=== PATIENT | male | born 1945 | race Caucasian/White ===

== ENCOUNTER 2017-11-19 08:42 | Emergency (ER) | payer OTHER ==
[2017-11-19] MEDS ORDERED: CLINDAMYCIN HCL 150 MG CAP ONE ×2 (09:08→09:09)
[2017-11-19] MEDS ORDERED: levoFLOXacin 500 MG TAB ONE (09:08)
--- NOTE | 2017-11-19 09:09 | ER ---
Nurse's Notes [facility] Name: Elton Sanches Age: 72 yrs Sex: Male : 1945 Arrival Date: 11/19/2017 Time: 08:45 Bed 20 Private MD: None, None Diagnosis: Cellulitis of left upper limb Presentation: 11/19 08:54 Presenting complaint: Patient states: L hand swelling and warmth that began yesterday ss is worse today. Pt reports he was playing cards two days ago and sustained a small cut on the top of his hand, but he didn't think much of it. Transition of care: patient was not received from another setting of care. Onset of symptoms was November 18, 2017. Risk Assessment: Do you want to hurt yourself or someone else? Patient reports no desire to harm self or others. Initial Sepsis Screen: Does the patient meet any 2 criteria? No. Patient's initial sepsis screen is negative. Does the patient have a suspected source of infection? No. Patient's initial sepsis screen is negative. Care prior to arrival: None. 08:54 Method Of Arrival: Ambulatory ss 08:54 Acuity: YARON 3 ss Triage Assessment: 09:09 General: Appears in no apparent distress. uncomfortable, Behavior is calm, cooperative, ss appropriate for age. Pain: Complains of pain in left hand. Historical: - Allergies: 08:59 PENICILLINS; ss - Home Meds: 08:59 lisinopril 10 mg Oral tab 1 tab once daily [Active]; amiodarone 200 mg Oral tab 1 tab ss once daily [Active]; carvedilol 3.125 mg oral tab 1 tab 2 times per day [Active]; furosemide 40 mg Oral tab 1 tab once daily [Active]; aspirin 325 mg Oral TbEC 1 tab once daily [Active]; miralax as needed for constipation [Active]; Claritan 10 mg PO DAILY [Active]; - PMHx: 08:59 Atrial Fib; Hypertension; Kidney stones; ss - PSHx: 08:59 Knee surgery; elbow; Lithotripsy; Appendectomy; ss 09:00 defibrillator; ss - Immunization history:: Last tetanus immunization: > 10 years ago. - Social history:: Smoking status: Patient/guardian denies using tobacco, but has a distant history of tobacco abuse. - Ebola Screening: : Patient denies exposure to infectious person Patient denies travel to an Ebola-affected area in the 21 days before illness onset. Screenin:09 Abuse screen: Denies threats or abuse. Denies injuries from another. Nutritional ss screening: No deficits noted. Tuberculosis screening: No symptoms or risk factors identified. Fall Risk None identified. Assessment: 09:09 General: Appears in no apparent distress. uncomfortable, Behavior is calm, cooperative, ss appropriate for age. Pain: Complains of pain in left hand. Neuro: Level of Consciousness is awake, alert, obeys commands, Oriented to person, place, time, situation, Appropriate for age. Cardiovascular: Capillary refill < 3 seconds Patient's skin is warm and dry. Respiratory: Airway is patent Respiratory effort is even, unlabored, Respiratory pattern is regular, symmetrical. GI: No signs and/or symptoms were reported involving the gastrointestinal system. : No signs and/or symptoms were reported regarding the genitourinary system. EENT: No signs and/or symptoms were reported regarding the EENT system. Derm: Skin is intact, Skin is dry, Skin is pink, warm \T\ dry. Skin temperature is warm. Musculoskeletal: No signs and/or symptoms reported regarding the musculoskeletal system. Vital Signs: 08:59 BP 148 / 100; Pulse 78; Resp 16; Temp 97.6(O); Pulse Ox 100% on R/A; Weight 79.38 kg; ss Height 5 ft. 9 in. (175.26 cm); Pain 3/10; 08:59 Body Mass Index 25.84 (79.38 kg, 175.26 cm) ED Course: 08:45 Patient arrived in ED. mr 08:46 None, None is Private Physician. mr 08:51 Leroy Wilkerson PA is PHCP. jr8 08:51 Romel Reeves MD is Attending Physician. jr8 08:56 Triage completed. ss 08:59 Arm band placed on right wrist. ss 09:02 Ronen Hammond, KAYKAY is Primary Nurse. hj 09:09 Patient has correct armband on for positive identification. Placed in gown. Bed in low ss position. Call light in reach. Side rails up X 1. 09:12 No provider procedures requiring assistance completed. Patient did not have IV access hj during this emergency room visit. Administered Medications: 09:03 Drug: Clindamycin 600 mg Route: IM; Site: Other; 09:11 Follow up: Response: No adverse reaction 09:03 Drug: LevaQUIN 500 mg Route: PO; 09:10 Follow up: Response: No adverse reaction Outcome: 09:08 Discharge ordered by MD. brumfield 09:13 Discharged to home ambulatory. 09:13 Condition: stable 09:13 Discharge instructions given to patient, Instructed on discharge instructions, follow up and referral plans. medication usage, Demonstrated understanding of instructions, follow-up care, medications, Prescriptions given X 2. 09:15 Patient left the ED. Signatures: Karla Galaviz mr Terra Jones RN RN Leroy Wilkerson PA PA 8 Ronen Hammond RN RN
--- NOTE | 2017-11-19 09:09 | EDPHYS ---
Physician Documentation [facility] Name: Elton Sanches Age: 72 yrs Sex: Male : 1945 Arrival Date: 11/19/2017 Time: 08:45 Bed 20 Private MD: None, None ED Physician Romel Reeves HPI: 11/19 09:02 This 72 yrs old Male presents to ER via Ambulatory with complaints of Hand jr8 Swelling. 09:02 The patient or guardian reports pain, swelling, tenderness. The complaints affect the jr8 left hand diffusely. Context: The problem was sustained at home. Onset: The symptoms/episode began/occurred acutely, 2 day(s) ago, and became worse. Modifying factors: The symptoms are alleviated by nothing, the symptoms are aggravated by movement. Associated signs and symptoms: The patient has no apparent associated signs or symptoms. Severity of symptoms: At their worst the symptoms were moderate, in the emergency department the symptoms are unchanged. The patient has not experienced similar symptoms in the past. The patient has not recently seen a physician. Patient stated that he nicked that top of his left hand 2 days ago while cleaning fish. Stated that yesterday he noticed mild swelling. Today it is red and has spread throughout entire dorsal hand to wrist . Historical: - Allergies: 08:59 PENICILLINS; ss - Home Meds: 08:59 lisinopril 10 mg Oral tab 1 tab once daily [Active]; amiodarone 200 mg Oral tab 1 tab ss once daily [Active]; carvedilol 3.125 mg oral tab 1 tab 2 times per day [Active]; furosemide 40 mg Oral tab 1 tab once daily [Active]; aspirin 325 mg Oral TbEC 1 tab once daily [Active]; miralax as needed for constipation [Active]; Claritan 10 mg PO DAILY [Active]; - PMHx: 08:59 Atrial Fib; Hypertension; Kidney stones; ss - PSHx: 08:59 Knee surgery; elbow; Lithotripsy; Appendectomy; ss 09:00 defibrillator; ss - Immunization history:: Last tetanus immunization: > 10 years ago. - Social history:: Smoking status: Patient/guardian denies using tobacco, but has a distant history of tobacco abuse. - Ebola Screening: : Patient denies exposure to infectious person Patient denies travel to an Ebola-affected area in the 21 days before illness onset. ROS: 09:02 Eyes: Negative for injury, pain, redness, and discharge, ENT: Negative for injury, jr8 pain, and discharge, Neck: Negative for injury, pain, and swelling, Cardiovascular: Negative for chest pain, palpitations, and edema, Respiratory: Negative for shortness of breath, cough, wheezing, and pleuritic chest pain, Abdomen/GI: Negative for abdominal pain, nausea, vomiting, diarrhea, and constipation, Back: Negative for injury and pain, MS/Extremity: Negative for injury and deformity, Neuro: Negative for headache, weakness, numbness, tingling, and seizure. 09:02 Skin: Positive for erythema, swelling, of the left hand. Exam: 09:02 Cardiovascular: Regular rate and rhythm with a normal S1 and S2. No gallops, murmurs, jr8 or rubs. Normal PMI, no JVD. No pulse deficits. Respiratory: Lungs have equal breath sounds bilaterally, clear to auscultation and percussion. No rales, rhonchi or wheezes noted. No increased work of breathing, no retractions or nasal flaring. MS/ Extremity: Pulses equal, no cyanosis. Neurovascular intact. Full, normal range of motion. Neuro: Awake and alert, GCS 15, oriented to person, place, time, and situation. Cranial nerves II-XII grossly intact. Motor strength 5/5 in all extremities. Sensory grossly intact. Cerebellar exam normal. Normal gait. 09:02 Skin: cellulitis, that is moderate, well demarcated, on the dorsum of left hand, No streaking/lymphangitis noted . Vital Signs: 08:59 BP 148 / 100; Pulse 78; Resp 16; Temp 97.6(O); Pulse Ox 100% on R/A; Weight 79.38 kg; ss Height 5 ft. 9 in. (175.26 cm); Pain 3/10; 08:59 Body Mass Index 25.84 (79.38 kg, 175.26 cm) ss MDM: 08:51 Patient medically screened. jr8 09:02 Data reviewed: vital signs, nurses notes, and as a result, I will discharge patient. jr8 Data interpreted: Pulse oximetry: on room air is 100 %. Interpretation: normal. Counseling: I had a detailed discussion with the patient and/or guardian regarding: the historical points, exam findings, and any diagnostic results supporting the discharge/admit diagnosis, the need for outpatient follow up, a family practitioner, to return to the emergency department if symptoms worsen or persist or if there are any questions or concerns that arise at home. ED course: Return precautions given to patient if cellulitis worsens, he starts to run high fevers, or cannot tolerate antibiotics or food . 09:09 ED course: Patient just finished bactrim coarse for tooth infection. Allergic to PCN. jr8 Levaquin and clindamycin would be best coverage . Administered Medications: 09:03 Drug: Clindamycin 600 mg Route: IM; Site: Other; 09:11 Follow up: Response: No adverse reaction 09:03 Drug: LevaQUIN 500 mg Route: PO; 09:10 Follow up: Response: No adverse reaction Disposition: 11:53 Co-signature as Attending Physician, Romel Reeves MD I agree with the assessment and kdr plan of care. Disposition: 11/19/17 09:08 Discharged to Home. Impression: Cellulitis of left upper limb. - Condition is Stable. - Discharge Instructions: Cellulitis, Adult. - Prescriptions for Clindamycin HCl 300 mg Oral Capsule - take 1 capsule by ORAL route every 6 hours for 10 days; 40 capsule. Levaquin 500 mg Oral Tablet - take 1 tablet by ORAL route once daily for 7 days; 7 tablet. - Medication Reconciliation Form, Thank You Letter, Antibiotic Education, Prescription Opioid Use form. - Follow up: Private Physician; When: 48 Hours; Reason: Recheck today's complaints, Continuance of care, Re-evaluation by your physician. - Problem is new. - Symptoms are unchanged. Signatures: Romel Reeves MD MD [facility] Terra Jones RN RN Leroy Wilkerson PA PA jrRonen Zhu RN RN Corrections: (The following items were deleted from the chart) 09:15 09:08 11/19/2017 09:08 Discharged to Home. Impression: Cellulitis of left upper limb. hj Condition is Stable. Forms are Medication Reconciliation Form, Thank You Letter, Antibiotic Education, Prescription Opioid Use. Follow up: Private Physician; When: 48 Hours; Reason: Recheck today's complaints, Continuance of care, Re-evaluation by your physician. Problem is new. Symptoms are unchanged. jr8
== END 2017-11-19 09:15 | disposition home or self-care (01) ==
LOC: ER 08:42
DX: L03.114 Cellulitis of left upper limb (principal); I10 Essential (primary) hypertension; Z88.0 Allergy status to penicillin
CPT/HCPCS: 96372; 99283

== ENCOUNTER 2018-06-18 08:02 | Emergency (ER) | payer MEDICARE, OTHER ==
--- OUTSIDE RECORDS SUMMARY | 2018-06-18 08:04 | XMS REPORT | Clinical Summary ---
:1945 Author Organization [facility] Address [address] [place] [id number] Care Team Providers Name Role Phone Unavailable Primary Care Provider Unavailable Allergies Not on File Medications Not on file Active Problems Not on file Social History Tobacco Use Types Packs/Day Years Used Date Never Assessed Sex Assigned at Date Recorded Not on file Job Start Date Occupation Industry Not on file Not on file Not on file Travel History Travel Start Travel End No recent travel history available. Last Filed Vital Signs Not on file Plan of Treatment Not on file Results Not on fileafter 06/17/2017
--- NOTE | 2018-06-18 08:53 | RAD REPORT ---
EXAM DESCRIPTION: RAD - Chest Single View - 06/18/2018 8:46 am CLINICAL HISTORY: Cough, congestion, fever and body aches COMPARISON: None. TECHNIQUE: AP portable chest image was obtained 0844 hours . FINDINGS: Lungs are clear. Heart and vasculature are normal. No measurable pleural effusion and no p neumothorax. No acute bony abnormality seen. No acute aortic findings. Defibrillator is in place. IMPRESSION: No acute cardiopulmonary process.
--- NOTE | 2018-06-18 08:56 | EDPHYS ---
Physician Documentation [facility] Name: Elton Sanches Age: 73 yrs Sex: Male : 1945 Arrival Date: 06/18/2018 Time: 08:04 Bed 20 Private MD: Óscar Meza E ED Physician Romel Reeves HPI: 06/18 08:21 This 73 yrs old Male presents to ER via Ambulatory with complaints of Sinus jr8 Congestion, cough, body aches. 08:21 The patient or guardian reports cough, that is intermittent, described as mild, with no jr8 sputum, difficulty breathing, flu symptoms, arthralgias, myalgias. Onset: The symptoms/episode began/occurred suddenly, 2 day(s) ago. Severity of symptoms: At their worst the symptoms were moderate, in the emergency department the symptoms are unchanged. Modifying factors: The symptoms are alleviated by nothing, the symptoms are aggravated by nothing. Associated signs and symptoms: Pertinent positives: rhinorrhea, sore throat. The patient has not experienced similar symptoms in the past. The patient has not recently seen a physician. Historical: - Allergies: 08:18 PENICILLINS; ss - PMHx: 08:18 Atrial Fib; Hypertension; Kidney stones; ss - PSHx: 08:18 Knee surgery; elbow prosthetic; defibrillator; Lithotripsy; Appendectomy; ss - Immunization history:: Adult Immunizations up to date. - Social history:: Smoking status: Patient/guardian denies using tobacco, but has a distant history of tobacco abuse. - Ebola Screening: : Patient denies exposure to infectious person Patient denies travel to an Ebola-affected area in the 21 days before illness onset. ROS: 08:21 Eyes: Negative for injury, pain, redness, and discharge, Neck: Negative for injury, jr8 pain, and swelling, Cardiovascular: Negative for chest pain, palpitations, and edema, Abdomen/GI: Negative for abdominal pain, nausea, vomiting, diarrhea, and constipation, Back: Negative for injury and pain, MS/Extremity: Negative for injury and deformity, Skin: Negative for injury, rash, and discoloration, Neuro: Negative for headache, weakness, numbness, tingling, and seizure. 08:21 Constitutional: Positive for body aches, chills. 08:21 ENT: Positive for rhinorrhea, sinus congestion, sinus pain, sore throat. 08:21 Respiratory: Positive for cough, shortness of breath, Negative for dyspnea on exertion, sputum production, wheezing. Exam: 08:21 Eyes: Pupils equal round and reactive to light, extra-ocular motions intact. Lids and jr8 lashes normal. Conjunctiva and sclera are non-icteric and not injected. Cornea within normal limits. Periorbital areas with no swelling, redness, or edema. ENT: Nares patent. No nasal discharge, no septal abnormalities noted. Tympanic membranes are normal and external auditory canals are clear. Oropharynx with no redness, swelling, or masses, exudates, or evidence of obstruction, uvula midline. Mucous membranes moist. Neck: Trachea midline, no thyromegaly or masses palpated, and no cervical lymphadenopathy. Supple, full range of motion without nuchal rigidity, or vertebral point tenderness. No Meningismus. Cardiovascular: Regular rate and rhythm with a normal S1 and S2. No gallops, murmurs, or rubs. Normal PMI, no JVD. No pulse deficits. Respiratory: Lungs have equal breath sounds bilaterally, clear to auscultation and percussion. No rales, rhonchi or wheezes noted. No increased work of breathing, no retractions or nasal flaring. Abdomen/GI: Soft, non-tender, with normal bowel sounds. No distension or tympany. No guarding or rebound. No evidence of tenderness throughout. Back: No spinal tenderness. No costovertebral tenderness. Full range of motion. Skin: Warm, dry with normal turgor. Normal color with no rashes, no lesions, and no evidence of cellulitis. MS/ Extremity: Pulses equal, no cyanosis. Neurovascular intact. Full, normal range of motion. Neuro: Awake and alert, GCS 15, oriented to person, place, time, and situation. Cranial nerves II-XII grossly intact. Motor strength 5/5 in all extremities. Sensory grossly intact. Cerebellar exam normal. Normal gait. Vital Signs: 08:12 BP 145 / 68; Pulse 65; Resp 17; Temp 97.2(TE); Pulse Ox 99% on R/A; Weight 78.02 kg; ss Height 5 ft. 10 in. (177.80 cm); 09:04 BP 131 / 62; Pulse 57; Resp 16; Pulse Ox 96% ; sv 08:12 Body Mass Index 24.68 (78.02 kg, 177.80 cm) ss MDM: 08:13 Patient medically screened. jr8 08:55 Data reviewed: vital signs, nurses notes, lab test result(s), Flu: negative radiologic jr8 studies, plain films. Data interpreted: Pulse oximetry: on room air is 99 %. Interpretation: normal. Counseling: I had a detailed discussion with the patient and/or guardian regarding: the historical points, exam findings, and any diagnostic results supporting the discharge/admit diagnosis, lab results, radiology results, the need for outpatient follow up, a family practitioner, to return to the emergency department if symptoms worsen or persist or if there are any questions or concerns that arise at home. 06/18 08:20 Order name: Flu 06/18 08:47 Order name: Influenza Screen (A ; Complete Time: 08:49 EDMS 06/18 08:21 Order name: XRAY Chest (1 view) jr8 06/18 08:54 Order name: RAD; Complete Time: 09:00 EDMS Administered Medications: No medications were administered Disposition: 15:32 Co-signature as Attending Physician, Romel Reeves MD I agree with the assessment and kdr plan of care. Disposition: 06/18/18 08:56 Discharged to Home. Impression: Acute upper respiratory infection, unspecified, Acute sinusitis. - Condition is Stable. - Discharge Instructions: Sinusitis, Adult, Upper Respiratory Infection, Adult, Viral Respiratory Infection. - Prescriptions for Medrol (Adrian) 4 mg Oral Tablets, Dose Pack - take 1 tablet by ORAL route as directed - follow package instructions; 1 packet. Doxycycline Monohydrate 100 mg Oral Tablet - take 1 tablet by ORAL route every 12 hours for 7 days; 14 tablet. Guaifenesin AC 10- 100 mg/5 mL Oral Liquid - take 10 milliliter by ORAL route every 4 hours As needed; 240 milliliter. - Medication Reconciliation Form, Thank You Letter, Antibiotic Education, Prescription Opioid Use form. - Follow up: Óscar Meza MD; When: 5 - 6 days; Reason: Recheck today's complaints, Continuance of care, Re-evaluation by your physician. - Problem is new. - Symptoms have improved. Signatures: Dispatcher [employer] EDTati Willoughby RN RN sv Rittger, Kevin, MD MD kdr Smirch, Shelby, RN RN ss Leroy Wilkerson PA PA jr8 Corrections: (The following items were deleted from the chart) 09:05 08:56 06/18/2018 08:56 Discharged to Home. Impression: Acute upper respiratory sv infection, unspecified; Acute sinusitis. Condition is Stable. Forms are Medication Reconciliation Form, Thank You Letter, Antibiotic Education, Prescription Opioid Use. Follow up: Óscar Meza; When: 5 - 6 days; Reason: Recheck today's complaints, Continuance of care, Re-evaluation by your physician. Problem is new. Symptoms have improved. jr8
--- NOTE | 2018-06-18 08:56 | ER ---
Nurse's Notes [facility] Name: Elton Sanches Age: 73 yrs Sex: Male : 1945 Arrival Date: 06/18/2018 Time: 08:04 Bed 20 Private MD: Óscar Meza E Diagnosis: Acute upper respiratory infection, unspecified;Acute sinusitis Presentation: 06/18 08:14 Presenting complaint: Patient states: sinus congestion, cough, fever, chills and body ss aches that began 2-3 days ago. Transition of care: patient was not received from another setting of care. Onset of symptoms was June 16, 2018. Risk Assessment: Do you want to hurt yourself or someone else? Patient reports no desire to harm self or others. Initial Sepsis Screen: Does the patient meet any 2 criteria? No. Patient's initial sepsis screen is negative. Does the patient have a suspected source of infection? No. Patient's initial sepsis screen is negative. Care prior to arrival: None. 08:14 Method Of Arrival: Ambulatory ss 08:14 Acuity: YARON 3 ss Historical: - Allergies: 08:18 PENICILLINS; ss - PMHx: 08:18 Atrial Fib; Hypertension; Kidney stones; ss - PSHx: 08:18 Knee surgery; elbow prosthetic; defibrillator; Lithotripsy; Appendectomy; ss - Immunization history:: Adult Immunizations up to date. - Social history:: Smoking status: Patient/guardian denies using tobacco, but has a distant history of tobacco abuse. - Ebola Screening: : Patient denies exposure to infectious person Patient denies travel to an Ebola-affected area in the 21 days before illness onset. Screenin:17 Abuse screen: Denies threats or abuse. Denies injuries from another. Nutritional sv screening: No deficits noted. Tuberculosis screening: No symptoms or risk factors identified. Fall Risk None identified. Assessment: 08:20 General: Appears in no apparent distress. comfortable, well groomed, well developed, sv Behavior is calm, cooperative, appropriate for age. Pain: Complains of pain in "body aches" Quality of pain is described as aching, Pain began 2-3 days ago. Neuro: Level of Consciousness is awake, alert, obeys commands, Oriented to person, place, time, situation, Moves all extremities. Full function Gait is steady. Respiratory: Reports cough that is non-productive, Respiratory effort is even, unlabored, Respiratory pattern is regular, symmetrical. EENT: Reports pain in left aspect of posterior pharynx and right aspect of posterior pharynx when swallowing. Derm: Skin is pink, warm \\T\\ dry. Musculoskeletal: Range of motion: intact in all extremities. 09:05 Reassessment: Patient appears in no apparent distress at this time. No changes from sv previously documented assessment. Patient and/or family updated on plan of care and expected duration. Pain level reassessed. Patient is alert, oriented x 3, equal unlabored respirations, skin warm/dry/pink. Vital Signs: 08:12 BP 145 / 68; Pulse 65; Resp 17; Temp 97.2(TE); Pulse Ox 99% on R/A; Weight 78.02 kg; ss Height 5 ft. 10 in. (177.80 cm); 09:04 BP 131 / 62; Pulse 57; Resp 16; Pulse Ox 96% ; sv 08:12 Body Mass Index 24.68 (78.02 kg, 177.80 cm) ED Course: 08:04 Patient arrived in ED. as 08:05 Óscar Meza MD is Private Physician. as 08:12 Arm band placed on right wrist. ss 08:13 [facility]. jr8 08:13 Romel Reeves MD is Attending Physician. jr8 08:16 Triage completed. ss 08:17 Tati Ramsay, RN is Primary Nurse. sv 08:17 Patient has correct armband on for positive identification. Bed in low position. Call sv light in reach. Pulse ox on. NIBP on. Door closed. Head of bed elevated. 08:18 Nurse Practitioner and/or Physician Rn Pool to see patient. sv 08:25 Flu and/or RSV swab sent to lab. sv 08:55 Óscar Meza MD is Referral Physician. jr8 08:58 Flu Sent. sv 08:58 XRAY Chest (1 view) Sent. sv 09:04 No provider procedures requiring assistance completed. Patient did not have IV access sv during this emergency room visit. Administered Medications: No medications were administered Outcome: 08:56 Discharge ordered by . jr8 09:05 Discharged to home ambulatory, with family. sv 09:05 Condition: stable 09:05 Discharge instructions given to patient, family, Instructed on discharge instructions, follow up and referral plans. medication usage, Demonstrated understanding of instructions, follow-up care, medications, Prescriptions given X 3. 09:05 Patient left the ED. sv Signatures: Tati Ramsay RN RN sv Martinez, Amelia as Smirch, Shelby, RN RN Leroy Wilkerson PA PA jr8
== END 2018-06-18 09:05 | disposition home or self-care (01) ==
LOC: ER 08:02
DX: J06.9 Acute upper respiratory infection, unspecified (principal); J01.90 Acute sinusitis, unspecified; I10 Essential (primary) hypertension; Z88.0 Allergy status to penicillin; Z95.810 Presence of automatic (implantable) cardiac defibrillator
CPT/HCPCS: 71045; 87804; 99284

== ENCOUNTER 2018-07-05 14:18 | Emergency (ER) | payer MEDICARE ==
--- OUTSIDE RECORDS SUMMARY | 2018-07-05 14:20 | XMS REPORT | Clinical Summary ---
:1945 Author Organization [facility] Address [address] [place] [address] Care Team Providers Name Role Phone Unavailable [...] Not on file Results Not on fileafter 07/04/2017
--- NOTE | 2018-07-05 16:35 | RAD REPORT ---
EXAM DESCRIPTION: RAD - Chest Single View - 07/05/2018 3:49 pm CLINICAL HISTORY: Cough and congestion COMPARISON: June 18, 2018 TECHNIQUE: AP portable chest image was obtained 1541 hours . FINDINGS: Lungs are clear. Heart and vasculature are normal. No measurable pleural effusion and no p neumothorax. No acute bony abnormality seen. No acute aortic findings suspected. Left subclavian defi brillator in place. IMPRESSION: No acute cardiopulmonary process. No significant change from comparison.
[2018-07-05] MEDS ORDERED: METHYLPREDNISOLONE 125 MG INJ ONE (19:48)
--- NOTE | 2018-07-05 20:09 | EDPHYS ---
Physician Documentation [facility] Name: Elton Sanches Age: 73 yrs Sex: Male : 1945 Arrival Date: 07/05/2018 Time: 14:22 Bed 10 Private MD: None, None ED Physician Óscar Bowden HPI: 07/05 20:04 This 73 yrs old Male presents to ER via Ambulatory with complaints of Flu kb Symptoms. 20:04 The patient or guardian reports cough, that is intermittent, described as moderate, kb with no sputum. Onset: The symptoms/episode began/occurred 2 week(s) ago. Severity of symptoms: At their worst the symptoms were moderate, in the emergency department the symptoms are unchanged. Modifying factors: The symptoms are alleviated by nothing, the symptoms are aggravated by nothing. Associated signs and symptoms: Pertinent positives: rhinorrhea, Pertinent negatives: chest pain, diarrhea, ear ache, fever, nausea, sore throat, vomiting. The patient has experienced similar episodes in the past. The patient has been recently seen at the [facility] Emergency Department, a couple of weeks ago, for similar complaints labs were performed, X-rays were performed, was given a prescription for antibiotics. Pt reports he has had a cough and sinus congestion for 2-2.5 weeks. Came here about 2 weeks ago and was given medrol, doxycycline and cough syrup, but symptoms continued. Reports benadryl does help symptoms, but they return after a few hours. . Historical: - Allergies: 14:44 PENICILLINS; ss - PMHx: 14:44 Atrial Fib; Hypertension; Kidney stones; ss - PSHx: 14:44 Knee surgery; elbow prosthetic; defibrillator; Lithotripsy; Appendectomy; ss - Immunization history:: Adult Immunizations unknown. - Social history:: Smoking status: Patient/guardian denies using tobacco. - Ebola Screening: : Patient denies exposure to infectious person Patient denies travel to an Ebola-affected area in the 21 days before illness onset. ROS: 20:03 Neck: Negative for injury, pain, and swelling, Cardiovascular: Negative for chest pain, kb palpitations, and edema, Abdomen/GI: Negative for abdominal pain, nausea, vomiting, diarrhea, and constipation, Back: Negative for injury and pain, : Negative for injury, bleeding, discharge, and swelling, MS/Extremity: Negative for injury and deformity, Skin: Negative for injury, rash, and discoloration, Neuro: Negative for headache, weakness, numbness, tingling, and seizure. 20:03 Constitutional: Positive for malaise, Negative for body aches, chills, fatigue, fever, poor PO intake, weight loss. 20:03 ENT: Positive for rhinorrhea, sinus congestion. 20:03 Respiratory: Positive for cough, Negative for dyspnea on exertion, hemoptysis, orthopnea, pleurisy, shortness of breath, sputum production, wheezing. Exam: 20:03 Constitutional: This is a well developed, well nourished patient who is awake, alert, kb and in no acute distress. Head/Face: Normocephalic, atraumatic. ENT: Nares patent. No nasal discharge, no septal abnormalities noted. Tympanic membranes are normal and external auditory canals are clear. Oropharynx with no redness, swelling, or masses, exudates, or evidence of obstruction, uvula midline. Mucous membranes moist. Neck: Trachea midline, no thyromegaly or masses palpated, and no cervical lymphadenopathy. Supple, full range of motion without nuchal rigidity, or vertebral point tenderness. No Meningismus. Chest/axilla: Normal chest wall appearance and motion. Nontender with no deformity. No lesions are appreciated. Cardiovascular: Regular rate and rhythm with a normal S1 and S2. No gallops, murmurs, or rubs. Normal PMI, no JVD. No pulse deficits. Respiratory: Lungs have equal breath sounds bilaterally, clear to auscultation and percussion. No rales, rhonchi or wheezes noted. No increased work of breathing, no retractions or nasal flaring. Abdomen/GI: Soft, non-tender, with normal bowel sounds. No distension or tympany. No guarding or rebound. No evidence of tenderness throughout. Skin: Warm, dry with normal turgor. Normal color with no rashes, no lesions, and no evidence of cellulitis. MS/ Extremity: Pulses equal, no cyanosis. Neurovascular intact. Full, normal range of motion. Neuro: Awake and alert, GCS 15, oriented to person, place, time, and situation. Cranial nerves II-XII grossly intact. Motor strength 5/5 in all extremities. Sensory grossly intact. Cerebellar exam normal. Normal gait. Vital Signs: 14:44 BP 150 / 87; Pulse 78; Resp 22; Temp 98.7(TE); Pulse Ox 99% on R/A; Weight 77.11 kg; ss Height 5 ft. 9 in. (175.26 cm); Pain 10/10; 19:31 BP 167 / 88; Pulse 73; Resp 16; Pulse Ox 99% on R/A; lp1 14:44 Body Mass Index 25.10 (77.11 kg, 175.26 cm) ss MDM: 19:11 Patient medically screened. kb 20:01 Data reviewed: vital signs, nurses notes. Data interpreted: Pulse oximetry: on room air kb is 99 %. Interpretation: normal. Counseling: I had a detailed discussion with the patient and/or guardian regarding: the historical points, exam findings, and any diagnostic results supporting the discharge/admit diagnosis, lab results, radiology results, the need for outpatient follow up, a family practitioner, to return to the emergency department if symptoms worsen or persist or if there are any questions or concerns that arise at home. 07/05 14:45 Order name: Flu; Complete Time: 19:10 ss 07/05 14:45 Order name: Strep; Complete Time: 19:10 ss 07/05 14:45 Order name: XRAY Chest (1 view); Complete Time: 19:10 07/05 15:37 Order name: Throat Culture EDMS Administered Medications: 19:46 Drug: SOLU-Medrol 125 mg Route: IM; Site: right deltoid; lp1 20:20 Follow up: Response: No adverse reaction lp1 Disposition: 07/06 10:24 Co-signature as Attending Physician, Óscar Bowden MD I agree with the assessment and wa plan of care. Disposition: 07/05/18 20:08 Discharged to Home. Impression: Acute sinusitis. - Condition is Stable. - Discharge Instructions: Sinusitis, Adult, [id number]. - Prescriptions for Tessalon Perles 100 mg Oral Capsule - take 1 capsule by ORAL route every 8 hours As needed; 15 capsule. - Medication Reconciliation Form, Thank You Letter, Antibiotic Education, Prescription Opioid Use form. - Follow up: Emergency Department; When: As needed; Reason: Worsening of condition. Follow up: Private Physician; When: 2 - 3 days; Reason: Recheck today's complaints, Continuance of care, Re-evaluation by your physician. - Notes: Take Flonase and zyrtec daily Signatures: Dispatcher [employer] EDMS Kanchan Foster, JAYE COLLINS-Terra Ordonez, RN RN ss Lisette Stahl RN RN lp1 Óscar Bowden MD MD wa Corrections: (The following items were deleted from the chart) 07/05 20:21 20:08 07/05/2018 20:08 Discharged to Home. Impression: Acute sinusitis. Condition is lp1 Stable. Forms are Medication Reconciliation Form, Thank You Letter, Antibiotic Education, Prescription Opioid Use. Follow up: Emergency Department; When: As needed; Reason: Worsening of condition. Follow up: Private Physician; When: 2 - 3 days; Reason: Recheck today's complaints, Continuance of care, Re-evaluation by your physician. kb
--- NOTE | 2018-07-05 20:09 | ER ---
Nurse's Notes [facility] Name: Elton Sanches Age: 73 yrs Sex: Male : 1945 Arrival Date: 07/05/2018 Time: 14:22 Bed 10 Private MD: None, None Diagnosis: Acute sinusitis Presentation: 07/05 14:42 Presenting complaint: Patient states: runny nose, nasal congestion, chest congestion, ss chills and body aches x 2.5 weeks. Transition of care: patient was not received from another setting of care. Onset of symptoms was June 17, 2018. Risk Assessment: Do you want to hurt yourself or someone else? Patient reports no desire to harm self or others. Initial Sepsis Screen: Does the patient meet any 2 criteria? No. Patient's initial sepsis screen is negative. Does the patient have a suspected source of infection? No. Patient's initial sepsis screen is negative. Care prior to arrival: None. 14:42 Method Of Arrival: Ambulatory ss 14:42 Acuity: YARON 3 ss Historical: - Allergies: 14:44 PENICILLINS; ss - PMHx: 14:44 Atrial Fib; Hypertension; Kidney stones; ss - PSHx: 14:44 Knee surgery; elbow prosthetic; defibrillator; Lithotripsy; Appendectomy; ss - Immunization history:: Adult Immunizations unknown. - Social history:: Smoking status: Patient/guardian denies using tobacco. - Ebola Screening: : Patient denies exposure to infectious person Patient denies travel to an Ebola-affected area in the 21 days before illness onset. Screenin:32 Abuse screen: Denies threats or abuse. Denies injuries from another. Nutritional lp1 screening: No deficits noted. Tuberculosis screening: No symptoms or risk factors identified. Fall Risk None identified. Assessment: 19:31 General: Appears in no apparent distress. Behavior is calm, cooperative, appropriate lp1 for age. Pain: Denies pain. Neuro: No deficits noted. Cardiovascular: No deficits noted. Respiratory: Reports cough that is dry, persistent Respiratory effort is even, unlabored, Respiratory pattern is regular, Breath sounds are clear bilaterally. GI: No deficits noted. : No deficits noted. EENT: Reports nasal congestion. Derm: Skin is pink, warm \T\ dry. Musculoskeletal: No deficits noted. Vital Signs: 14:44 BP 150 / 87; Pulse 78; Resp 22; Temp 98.7(TE); Pulse Ox 99% on R/A; Weight 77.11 kg; ss Height 5 ft. 9 in. (175.26 cm); Pain 10/10; 19:31 BP 167 / 88; Pulse 73; Resp 16; Pulse Ox 99% on R/A; lp1 14:44 Body Mass Index 25.10 (77.11 kg, 175.26 cm) ED Course: 14:22 Patient arrived in ED. dl4 14:22 None, None is Private Physician. dl4 14:44 Triage completed. ss 14:44 Arm band placed on right wrist. ss 15:50 XRAY Chest (1 view) In Process Unspecified. EDMS 19:10 Throat Culture Sent. aa5 19:11 [facility] kb 19:11 Óscar Bowden MD is Attending Physician. kb 19:22 Lisette Stahl, RN is Primary Nurse. lp1 19:32 Patient has correct armband on for positive identification. lp1 19:32 No provider procedures requiring assistance completed. Patient did not have IV access lp1 during this emergency room visit. Administered Medications: 19:46 Drug: SOLU-Medrol 125 mg Route: IM; Site: right deltoid; lp1 20:20 Follow up: Response: No adverse reaction lp1 Outcome: 20:08 Discharge ordered by . kb 20:20 Discharged to home ambulatory, with significant other. lp1 20:20 Condition: good 20:20 Discharge instructions given to patient, Instructed on discharge instructions, follow up and referral plans. medication usage, Demonstrated understanding of instructions, follow-up care, medications, Prescriptions given X 1. 20:21 Patient left the ED. lp1 Signatures: Dispatcher [employer] EDMS Kanchan Foster FNP-C FNP-Ckb Calderon, Audri, RN RN aa5 Terra Jones RN RN Lisette Stahl, RN RN lp1 Alex Bueno dl4
== END 2018-07-05 20:21 | disposition home or self-care (01) ==
LOC: ER 14:18
DX: J01.90 Acute sinusitis, unspecified (principal); I48.91 Unspecified atrial fibrillation; I10 Essential (primary) hypertension; Z88.0 Allergy status to penicillin
CPT/HCPCS: 87070; 87081; 87804 ×2; 71045; 96372; 99284; J2930

== ENCOUNTER 2018-12-10 12:51 | Emergency (ER) | payer MEDICARE ==
--- OUTSIDE RECORDS SUMMARY | 2018-12-10 12:52 | XMS REPORT | Clinical Summary ---
:1945 Author Organization [facility] Address [address] [place] [id number] Care Team Providers Name Role Phone Unavailable [...] Not on file Results Not on fileafter 12/09/2017
--- NOTE | 2018-12-10 13:40 | ER ---
Nurse's Notes [facility] Name: Elton Sanches Age: 73 yrs Sex: Male : 1945 Arrival Date: 12/10/2018 Time: 12:54 Bed 19 Private MD: Óscar Meza E Diagnosis: Cellulitis of scalp Presentation: 12/10 13:00 Presenting complaint: Patient states: I had a dental infection about a week ago and I la1 just completed a course of clindamycin. Now I have some areas of redness and swelling on my scalp that I think are bites. Transition of care: patient was not received from another setting of care. Onset of symptoms was December 10, 2018. Risk Assessment: Do you want to hurt yourself or someone else? Patient reports no desire to harm self or others. Initial Sepsis Screen: Does the patient meet any 2 criteria? No. Patient's initial sepsis screen is negative. Does the patient have a suspected source of infection? No. Patient's initial sepsis screen is negative. Care prior to arrival: None. 13:00 Method Of Arrival: Ambulatory la1 13:00 Acuity: YARON 3 la1 Historical: - Allergies: 13:00 PENICILLINS; la1 - PMHx: 13:00 Atrial Fib; Hypertension; Kidney stones; la1 - Immunization history:: Adult Immunizations up to date. - Social history:: Smoking status: Patient/guardian denies using tobacco. - Ebola Screening: : No symptoms or risks identified at this time. - Family history:: not pertinent. - Hospitalizations: : No recent hospitalization is reported. Screenin:15 Abuse screen: Denies threats or abuse. Nutritional screening: No deficits noted. em Tuberculosis screening: No symptoms or risk factors identified. Fall Risk None identified. Assessment: 13:15 General: Appears in no apparent distress. comfortable, Behavior is calm, cooperative. em Pain: Complains of pain in right temporal area Pain currently is 2 out of 10 on a pain scale. Neuro: Level of Consciousness is awake, alert, obeys commands, Oriented to person, place, time, situation. Cardiovascular: Capillary refill < 3 seconds Patient's skin is warm and dry. Respiratory: Airway is patent Respiratory effort is even, unlabored, Respiratory pattern is regular, symmetrical. Derm: Skin is intact, is healthy with good turgor, Skin is pink, warm \T\ dry. redness noted on right pentecostalism. Musculoskeletal: Capillary refill < 3 seconds, Range of motion: intact in all extremities, Swelling present in right temporal area. Vital Signs: 13:01 BP 132 / 69; Pulse 68; Resp 16; Temp 98.7; Pulse Ox 98% on R/A; la1 ED Course: 12:54 Patient arrived in ED. as 12:55 Óscar Meza MD is Private Physician. as 13:00 Arm band placed on right wrist. la1 13:01 Triage completed. la1 13:02 Shukri Loco MD is Attending Physician. rn 13:03 Wilfrido Esposito LVN is Primary Nurse. em 13:15 Patient has correct armband on for positive identification. Bed in low position. Call em light in reach. Adult w/ patient. 13:39 No provider procedures requiring assistance completed. Patient did not have IV access em during this emergency room visit. Administered Medications: No medications were administered Outcome: 13:38 Discharge ordered by . rn 13:44 Discharged to home ambulatory, with family. em 13:44 Condition: good 13:44 Discharge instructions given to patient, Instructed on discharge instructions, follow up and referral plans. medication usage, Demonstrated understanding of instructions, follow-up care, medications, Prescriptions given X 3. 13:45 Patient left the ED. em Signatures: Wilfrido Esposito LVN LVN em Martinez, Amelia as Shukri Loco MD MD rn Attema, Lee, RN RN la1
--- NOTE | 2018-12-10 13:40 | EDPHYS ---
Physician Documentation [facility] Name: Elton Sanches Age: 73 yrs Sex: Male : 1945 Arrival Date: 12/10/2018 Time: 12:54 Bed 19 Private MD: Óscar Meza E ED Physician Shukri Loco HPI: 12/10 13:32 This 73 yrs old Male presents to ER via Ambulatory with complaints of Insect rn Bite. 13:32 the patient presents with a swollen area of the scalp. Description: erythematous, rn swollen. Onset: The symptoms/episode began/occurred 1 week(s) ago. Possible cause(s): spider bite. Modifying factors: the symptoms are alleviated by nothing, the symptoms are aggravated by nothing. Severity of symptoms: At their worst the symptoms were mild, in the emergency department the symptoms are unchanged. The patient has not experienced similar symptoms in the past. Reports swelling to right scalp for 1 week, getting worse, no fever, no trauma, thinks spider bit him, clear drainage. . Historical: - Allergies: 13:00 PENICILLINS; la1 - PMHx: 13:00 Atrial Fib; Hypertension; Kidney stones; la1 - Immunization history:: Adult Immunizations up to date. - Social history:: Smoking status: Patient/guardian denies using tobacco. - Ebola Screening: : No symptoms or risks identified at this time. - Family history:: not pertinent. - Hospitalizations: : No recent hospitalization is reported. ROS: 13:32 Constitutional: Negative for fever, chills, and weight loss, Eyes: Negative for injury, rn pain, redness, and discharge, ENT: Negative for injury, pain, and discharge, Neck: Negative for injury, pain, and swelling, Skin: + right scalp swelling Neuro: Negative for headache, weakness, numbness, tingling, and seizure. Exam: 13:32 Constitutional: This is a well developed, well nourished patient who is awake, alert, rn and in no acute distress. Head/Face: + right temproal scalp swelling, approx 4cm irregular and indurated, no fluctuance. 2 separate scabbed areas on scalp with mild erythema. Eyes: Pupils equal round and reactive to light, extra-ocular motions intact. Lids and lashes normal. Conjunctiva and sclera are non-icteric and not injected. Cornea within normal limits. Periorbital areas with no swelling, redness, or edema. Neuro: Awake and alert, GCS 15, oriented to person, place, time, and situation. Cranial nerves II-XII grossly intact. Motor strength 5/5 in all extremities. Sensory grossly intact. Cerebellar exam normal. Normal gait. Vital Signs: 13:01 BP 132 / 69; Pulse 68; Resp 16; Temp 98.7; Pulse Ox 98% on R/A; la1 MDM: 13:02 Patient medically screened. rn 13:32 Differential diagnosis: abscess, cellulitis, insect bite. Data reviewed: vital signs, rn nurses notes, radiologic studies, ultrasound, and as a result, I will discharge patient. Counseling: I had a detailed discussion with the patient and/or guardian regarding: the historical points, exam findings, and any diagnostic results supporting the discharge/admit diagnosis, radiology results, the need for outpatient follow up, to return to the emergency department if symptoms worsen or persist or if there are any questions or concerns that arise at home. Special discussion: I discussed with the patient/guardian in detail that at this point there is no indication for admission to the hospital. It is understood, however, that if the symptoms persist or worsen the patient needs to return immediately for re-evaluation. ED course: Bedside ultrasound performed by Dr. Loco, no fluid collection seen at indurated site, + cobblestoning evident. . Administered Medications: No medications were administered Disposition: 12/10/18 13:38 Discharged to Home. Impression: Cellulitis of scalp. - Condition is Stable. - Discharge Instructions: Cellulitis, Adult, Spider Bite. - Prescriptions for Bactrim DS 800- 160 mg Oral Tablet - take 1 tablet by ORAL route every 12 hours for 10 days; 20 tablet. Doxycycline Monohydrate 100 mg Oral Tablet - take 1 tablet by ORAL route every 12 hours for 10 days; 20 tablet. Nystatin- Triamcinolone 100,000-0.1 unit/gram-% Topical Ointment - apply 1 application by TOPICAL route 2 times per day; 1 tube. - Medication Reconciliation Form, Thank You Letter, Antibiotic Education, Prescription Opioid Use form. - Follow up: Private Physician; When: As needed; Reason: Recheck today's complaints, Re-evaluation by your physician. - Problem is new. - Symptoms have improved. Signatures: Wilfrido Esposito, JOURNALISTS AND OTHER WRITERS JOURNALISTS AND OTHER WRITERS em Shukri Loco MD MD rn Attema, Lee, RN RN la1 Corrections: (The following items were deleted from the chart) 13:45 13:38 12/10/2018 13:38 Discharged to Home. Impression: Cellulitis of scalp. Condition em is Stable. Forms are Medication Reconciliation Form, Thank You Letter, Antibiotic Education, Prescription Opioid Use. Follow up: Private Physician; When: As needed; Reason: Recheck today's complaints, Re-evaluation by your physician. Problem is new. Symptoms have improved. rn
== END 2018-12-10 13:45 | disposition home or self-care (01) ==
LOC: ER 12:51
DX: L03.811 Cellulitis of head [any part, except face] (principal); I10 Essential (primary) hypertension; Z88.0 Allergy status to penicillin
CPT/HCPCS: 99282

== ENCOUNTER 2023-02-12 11:25 | Emergency (ER) | payer OTHER ==
--- OUTSIDE RECORDS SUMMARY | 2023-02-12 11:28 | XMS REPORT | Continuity of Care Document ---
:1945 Author Organization [facility] t Address [address] [place] [address] [place] [id number] Care Team Providers Name Role Phone Levy Fonseca Attending Clinician Unavailable RANDALL THAO Attending Clinician Unavailable Randall Thao MD Attending Clinician Mare Neves Attending Clinician Unavailable Payers Payer Name Policy Type Policy Number Effective Date Expiration Date Valentin SORIANO/SARAH BETH [id number] 2020 MEDICARE ADVANTAGE 00:00:00 Problems Condition Condition Condition Status Onset Resolution Last Treating Co mments Source Name Details Category Date Date Treatment Clinician Date MONOCLONAL MONOCLONA Diagnosis Active 2018-042019-02-09 Memoria GAMMOPATHY L 0-10 09:35:00 l GAMMOPATHY 00:00: Gilsno n Active 00 02/03/2019 [facility] No known No known Disease Unive rs active active ity of problems problems [facility] Allergies, Adverse Reactions, Alerts Allergy Allergy Status Severity Reaction(s) Onset Inactive Treating Comm ents Source Name Type Date Date Clinician No Known DA Active U 2020-04 [facility] Drug 2-02 Allergie 00:00: s 00 PENICILL Drug Active Unknown-Cmnt 2010-04 Un deepa INS Class 0-26 ity of 00:00: [place] 00 [facility] Penicill Propensi Active Unknown - 2010-04 Uni vers ins ty to See comments 0-26 ity of adverse 00:00: [place] reaction 00 [facility] s Branch NO KNOWN Drug Active Univers ALLERGIE Class ity of S [facility] penicill penicill Active Memori a ins ins l [place] Social History Social Habit Start Date Stop Date Quantity Comments Source Exposure to Not sure University SARS-CoV-2 [facility] (event) Branch Alcohol intake 2020-09-12 2020-09-12 Current drinker Unive rsity of 00:00:00 00:00:00 of alcohol [facility] (finding) Branch Tobacco use and 2020-09-12 2020-09-12 Never used Universit y of exposure 00:00:00 00:00:00 [facility] Sex Assigned At [address] [facility] 00:00[facility]00 [facility]00 [facility] Smoking Status Start Date Stop Date Source Never smoker [facility] Social History 2019-02-08 19:47:52 2019-02-08 19:47:52 [facility] Medic[facility] Ordered Filled Start Stop Current Ordering Indication Dosage Frequency Signature Comments Components Source Medication Medication Date Date Medication? Clinician (SIG) Name Name carvedilol 2018-04 Yes 3.125 mg = M emoria 3.125 mg 0-15 1 tab, PO, l oral tablet 19:43: BID, # 180 [facility] 00 tab, 0 Refill(s) Vitamin B12 2018-04 Yes 0 Memori a 0-15 Refill(s) l 19:43: [facility] 00 AMIODarone 2018-04 Yes 200 mg = 1 M emoria 200 mg oral 0-15 tab, PO, l tablet 19:43: Daily, # Regis 00 90 tab, 3 Refill(s) Aspirin 325 2018-04 Yes 325 mg = 1 Memoria MG Oral 0-15 tab, PO, l Tablet 19:43: Daily, # Madill 00 90 tab, 3 Refill(s) No known No Univers medications [facility] No known No Univers medications [facility] Vital Signs Vital Name Observation Time Observation Value Comments Source Body height 2020-09-12 19:18:00 175.3 cm [facility] Body weight 2020-09-12 19:18:00 81.647 kg [facility] BMI 2020-09-12 19:18:00 26.58 kg/m2 [facility] Height 2019-02-08 19:38:00 175.26 cm [facility] Weight 2019-02-08 19:38:00 [facility] BMI Calculated 2019-02-08 19:38:00 Vicky Goddard Procedures This patient has no known procedures. Encounters Start End Encounter Admission Attending Care Care Encounter Source Date/Time Date/Time Type Type Clinicians Facility Department ID 2021-03-29 2021-03-29 Outpatient Elective Marian [facility] [id number] [facility] 06:11:00 06:12:00 Levy 49 2021-03-29 2021-03-29 Outpatient [facility] [id number] [facility] 06:11:00 06:11:00 49 2020-09-12 2020-09-12 Outpatient R [facility] [id number] Univers 14:45:00 14:45:00 RANDALL vito [facility] 2020-09-12 2020-09-12 [facility] [id number] Univers 14:16:13 14:40:20 Visit Randall [employer] [id number] it y of Surgical [id number] Panchito as Specialti [id number] Id dical [address] [place] 2019-02-09 2019-02-10 Outpatient [facility] [id number] Memoria 14:26:00 04:59:00 luis Stacy 00 l [facility] 2019-02-09 2019-02-09 Outpatient SUSANNA eNves [facility] [id number] 09:26:00 23:59:00 Mare 00 Katelynn 2019-02-09 2019-02-09 Outpatient [facility] [id number] [facility] 09:26:00 09:26:00 Results Test Description Test Time Test Comments Results Result Comments Source Smear Review 2021-03-29 06:55:00 Test Item Value Reference Range Interpretation Comme nts Platelet Estimate (test code = PLTEST) Increased Normal RBC Morphology (test code = RM) Abnormal Normal Macrocytosis (test code = MACROC) 1+ None Seen A Comprehensive Metabolic [id number] 06:55:00 Test Item Value Reference Range Interpretation Comments SODIUM (test code = NA) 140.0 mmol/L 136.0-145.0 N Potassium,K (test code = K) 4.4 mmol/L 3.0-5.1 N Chloride (test code = CL) 103 mmol/L 98-107 N Carbon Dioxide (test code = CO2) 31 mmol/L 20-31 N Anion Gap (test code = GAP) 6 mmol/L 5-15 N Blood Urea Nitrogen (test code = 20 mg/dL 9-23 N BUN) Creatinine (test code = CREATT) 1.17 mg/dL 0.55-1.02 H Creatinine Clr Calc Pharmacy 54.40 mL/min (test code = CRCLPHA) Estimated GFR ( Paola > 60 mL/min/1.73m2 (test code = EGFRAA) Estimated GFR (Non Afr Paola > 60 mL/min/1.73m2 (test code = EGFRNAA) BUN/Creatinine Ratio (test code 17 ratio 10-20 N = BCRATIO) Glucose (test code = GLU) 90 mg/dL 74-106 N Osmolality,Calculated (test code 292.1 = OSMOC) Calcium (test code = CA) 9.5 mg/dL 8.3-10.6 N Bilirubin,Total (test code = 0.6 mg/dL 0.2-1.1 N BILIT) Aspartate Amino Transferase 24 U/L 0-34 N (test code = AST) Alanine Aminotransferase (test < 7 U/L 10-49 L code = ALT) Total Protein (test code = TP) 7.4 g/dL 5.7-8.2 N Albumin Level (test code = ALB) 4.4 g/dL 3.2-4.8 N Globulin (test code = GLOB) 3.0 mg/dL 2.3-3.5 N Albumin/Globulin Ratio (test 1.5 ratio 0.8-2.0 N code = AGRATIO) Alkaline Phosphatase (test code 60 U/L 46-116 N = ALP) Lipid [id number] 06:55:00 Test Item Value Reference Range Interpretation Comments Triglycerides (test code 91 mg/dL 9-200 N = TRIG) Cholesterol (test code = 196 mg/dL 0-200 N CHOL) LDL 116 mg/dL 0-130 N LDL (mg/dL)Opti mal Cholesterol,Calculated <100N ear Optimal (test code = LDLC) 100-129Bo rderline High 130-159Hig h 160-189Very Hig h >=190 VLDL CHOLESTEROL (test 18 mg/dL code = VLDL) HDL Cholesterol (test 62 mg/dL 40-60 H code = HDL) LDL/HDL Ratio (test code 2 = LDLHDL) Chol/HDL Ratio (test code 3.2 ratio 0.0-5.0 N = CHLHDL) Complete Blood Count Auto [id number] 06:55:00 Test Item Value Reference Range Interpretation Comments White Blood Count (test code = 5.2 x10 3/uL 4.4-10.5 N WBCT) Red Blood Count (test code = 3.50 x10 6/uL 4.10-5.70 L RBC) Hemoglobin (test code = HGBT) 13.8 g/dL 13.4-17.4 N Hematocrit (test code = HCTT) 40.4 % 38.7-52.0 N Mean Corpuscular Volume (test 115.40 fL 80.00-100.00 H code = MCV) Mean Corpuscular Hemoglobin 39.4 pg 27.0-32.5 H (test code = MCH) Mean Corpuscular HGB Conc 34.20 g/dL 32.00-37.50 N (test code = MCHC) RDW Coefficient of Variation 12.6 % 11.5-14.5 N (test code = RDWCV) Platelet Count (test code = 612.0 x10 3/uL 140.0-440.0 H PLTT) Mean Platelet Volume (test 8.5 fL code = MPV) Immature Granulocytes % (Auto) 0.2 % 0.0-5.0 N (test code = IMMGRAN%) Neutrophils % (Auto) (test 55.4 % 36.0-70.0 N code = NE%) Lymphocytes % (Auto) (test 29.8 % 12.0-44.0 N code = LY%) Monocytes % (Auto) (test code 13.2 % 0.0-11.0 H = MO%) Eosinophils % (Auto) (test 0.8 % 0.0-7.0 N code = EO%) Basophils % (Auto) (test code 0.6 % 0.0-2.0 N = BA%) Immature Granulocytes # (Auto) 0.01 x10 3/uL (test code = IMMGRAN#) Neutrophils # (Auto) (test 2.9 x10 3/uL 1.6-7.4 N code = NE#) Lymphocytes # (Auto) (test 1.54 x10 3/uL 0.50-4.60 N code = LY#) Monocytes # (Auto) (test code 0.68 x10 3/uL 0.00-1.20 N = MO#) Eosinophils # (Auto) (test 0.04 x10 3/uL 0.00-0.74 N code = EO#) Basophils # (Auto) (test code 0.03 x10 3/uL 0.00-0.21 N = BA#) nRBC Abs (test code = NRBCA) 0 nRBC Pct (test code = NRBCP) 0 % Prothrombin Time [id number] 06:55:00 Test Item Value Reference Range Interpretation Comments Prothrombin Time 10.9 Seconds 9.3-12.1 N *Note New R eference (test code = PT) Range INR (test code = 1.0 ratio 0.9-1.2 N Reference I nterval is INR) for non-anticoagula skinny patients.Sugges skinny INR Therapeutic Range for Vitamin K antogonistthera py:LEV ELS OFTHERAPY INDICATIONS TAR GET INR RANGEStanda rd Dose Venous Thrombosis, 2. 0 - 3.0 Atrial Fibrillation, Pulmonary Embolism.High D ose Valvular Heart Disease, 2.5 - 3.5 Mechanical Hear t, Intracardiac Thrombosis.*Not e New Reference Range Partial Thromboplastin [id number] 06:55:00 Test Item Value Reference Range Interpretation Comments Partial Thromboplastin 26.2 Seconds 23.9-32.8 N *Note New Time (test code = PTT) Refer ence Range [id number] 14:52:00 Test Item Value Reference Range Interpretation Comments WBC (test code = WBC) 8.0 3.7-10.4 [id number] 14:52:00 Test Item Value Reference Range Interpretation Comments RBC (test code = RBC) 4.51 4.70-6.10 [id number] 14:52:00 Test Item Value Reference Range Interpretation Comments Hgb (test code = Hgb) 15.7 14.0-18.0 [facility] H[id number] 14:52:00 Test Item Value Reference Range Interpretation Comments Hct (test code = Hct) 45.2 42.0-54.0 [facility] H[id number] 14:52:00 Test Item Value Reference Range Interpretation Comments MCV (test code = MCV) 100.1 80.0-94.0 [facility] [id number] 14:52:00 Test Item Value Reference Range Interpretation Comments MCH (test code = MCH) 34.9 pg 27.0-31.0 [facility] [id number] 14:52:00 Test Item Value Reference Range Interpretation Comments MCHC (test code = MCHC) 34.8 32.0-36.0 [facility] [id number] 14:52:00 Test Item Value Reference Range Interpretation Comments RDW (test code = RDW) 13.3 11.5-14.5 [facility] [id number] 14:52:00 Test Item Value Reference Range Interpretation Comments Platelet (test code = Platelet) [id number] [facility] [id number] 14:52:00 Test Item Value Reference Range Interpretation Comments MPV (test code = MPV) 6.1 7.4-10.4 [facility] [id number] 14:52:00 Test Item Value Reference Range Interpretation Comments Neutrophils # (test code = Neutrophils 5.2 1.5-8.1 #) [facility] [id number] 14:52:00 Test Item Value Reference Range Interpretation Comments Lymphocytes # (test code = Lymphocytes 2.0 1.0-5.5 #) [facility] [id number] 14:52:00 Test Item Value Reference Range Interpretation Comments Monocytes # (test code = Monocytes #) 0.7 <=0.8 [facility] [id number] 14:52:00 Test Item Value Reference Range Interpretation Comments Basophils # (test code = Basophils #) 0.[address] [facility] [id number] 14:52:00 Test Item Value Reference Range Interpretation Comments Segs (test code = Segs) 62.0 45.0-75.0 [facility] [id number] 14:52:00 Test Item Value Reference Range Interpretation Comments Bands (test code = Bands) 3.[address] [facility] [id number] 14:52:00 Test Item Value Reference Range Interpretation Comments Lymphocytes (test code = Lymphocytes) 24.0 20.0-40.0 [facility] [id number] 14:52:00 Test Item Value Reference Range Interpretation Comments Monocytes (test code = Monocytes) 9.0 2.0-12.0 [facility] [id number] 14:52:00 Test Item Value Reference Range Interpretation Comments Basophils (test code = Basophils) 1.[address] [facility] [id number] 14:52:00 Test Item Value Reference Range Interpretation Comments Atypical Lymphs (test code = Atypical 1.0 Lymph[address]) [facility] [id number] 14:52:00 Test Item Value Reference Range Interpretation Comments Plt Morph (test code = Normal (02/09/19 9:52 Plt Morph) AM) [facility] [id number] 14:52:00 Test Item Value Reference Range Interpretation Comments Retic Auto (test code = Retic Auto) 0.9 0.5-1.5 [facility]
[2023-02-12 11:45] LABS: Absolute Lymphocytes (CBC) 0.9 K/uL (0.7-4.9); Hematocrit 38.4 % (39.6-49.0); Lymphocytes % 25.8 % (15.3-44.8); MCV 136.7 fL (80-100); MPV 6.3 fL (7.6-11.3); Platelets 377 thou/uL (152-406); RBC Red Blood Cell Count 2.81 M/uL (4.33-5.43)
[2023-02-12 12:00] LABS: Albumin 3.3 g/dL (3.4-5.0); Bilirubin Total 0.6 mg/dL (0.2-1.0); Potassium 4.3 mEq/L (3.5-5.1); Protein, Total 7.4 g/dL (6.4-8.2)
--- NOTE | 2023-02-12 12:24 | RAD REPORT ---
EXAM DESCRIPTION: RAD - Hip Left 2 View - 02/12/2023 12:08 pm CLINICAL HISTORY: Left hip pain FINDINGS: No fracture or dislocation is seen. Osteoporosis Mild osteoarthritis involves the left hip consisting of joint space narrowing and subchondral scleros is
--- NOTE | 2023-02-12 12:24 | RAD REPORT ---
EXAM DESCRIPTION: RAD - Pelvis - 02/12/2023 12:08 pm CLINICAL HISTORY: Left hip pain FINDINGS: No fracture or dislocation is seen. Osteoporosis Mild osteoarthritis involves the hips consisting of joint space narrowing and subchondral sclerosis
--- NOTE | 2023-02-12 12:30 | RAD REPORT ---
EXAM DESCRIPTION: CTSpine Lumbar Wo Con02/12/2023 11:54 am CLINICAL HISTORY: Left leg radiculopathy COMPARISON: None TECHNIQUE: Computed axial tomography lumbar spine was obtained with coronal and sagittal reconstruct ion. All CT scans are performed using dose optimization technique as appropriate and may include automated exposure control or mA/KV adjustment according to patient size. FINDINGS: No fracture is seen. No dislocation No significant bony lesion noted. Calcified disc bulge L2-3 mildly encroaches upon thecal sac. Mild narrowing of the left neural forami na Calcified disc bulge L3-4 mildly encroaches upon thecal sac. Ligamentum and facet hypertrophy is pres ent. Mild to moderate narrowing of the left neural foramina. Mild spondylosis L4-5 and L5-S1. 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 Mild to moderate left foraminal stenosis L3-4 If patient continues to have symptoms to suggest significant spinal canal/neural foraminal pathology MRI would be recommended
--- NOTE | 2023-02-12 12:49 | EDPHYS ---
Physician Documentation [facility] Name: Elton Sanches Age: 77 yrs Sex: Male : 1945 Arrival Date: 02/12/2023 Time: 11:25 Bed 15 Private MD: ED Physician Gokul West HPI: 02/12 11:41 This 77 yrs old Male presents to ER via EMS with complaints of left hip pain into low sp3 back. 11:41 77-year-old male with a history of multiple myeloma, hypertension, paroxysmal A-fib sp3 currently on aspirin only now presents to the ED with chief complaint left hip pain extending into his low back. Patient has had similar symptoms in the past on the right side which have self resolved with anti-inflammatories. There is concern of radiculopathy secondary to degenerative disc disease. Patient has no known bony lesions and is currently on oral chemotherapy only. He denies any trauma, loss of bowel or bladder control, and feels much better after 100 mcg of fentanyl which was given by EMS in route to the ED. He also denies headache, neck pain, shortness of breath, chest pain, abdominal pain, nausea, vomiting, diarrhea, syncope, near syncope, or any other focal neurological deficit at this time.. Historical: - Allergies: 11:29 PENICILLINS; mb9 - Home Meds: 11:29 aspirin 325 mg Oral TbEC 1 tab once daily [Active]; lisinopril 10 mg Oral tab 1 tab mb9 once daily [Active]; amiodarone 200 mg Oral tab 1 tab once daily [Active]; carvedilol 3.125 mg Oral tab 1 tab 2 times per day [Active]; - PMHx: 11:29 Atrial Fib; Hypertension; Kidney stones; multiple myeloma (Kidney stones); mb9 - Immunization history:: Adult Immunizations up to date. - Social history:: Smoking status: Patient denies any tobacco usage or history of. ROS: 11:43 Constitutional: Negative for fever, chills, and weight loss, Eyes: Negative for injury, sp3 pain, redness, and discharge, ENT: Negative for injury, pain, and discharge, Neck: Negative for injury, pain, and swelling, Cardiovascular: Negative for chest pain, palpitations, and edema, Respiratory: Negative for shortness of breath, cough, wheezing, and pleuritic chest pain, Abdomen/GI: Negative for abdominal pain, nausea, vomiting, diarrhea, and constipation, Back: Negative for injury and pain, Skin: Negative for injury, rash, and discoloration, Psych: Negative for depression, anxiety, suicide ideation, homicidal ideation, and hallucinations, Allergy/Immunology: Negative for hives, rash, and allergies, Endocrine: Negative for neck swelling, polydipsia, polyuria, polyphagia, and marked weight changes, Hematologic/Lymphatic: Negative for swollen nodes, abnormal bleeding, and unusual bruising, 11:43 All other systems are negative, Exam: 11:43 Constitutional: This is a well developed, well nourished patient who is awake, alert, sp3 and in no acute distress. Head/Face: Normocephalic, atraumatic. Eyes: Pupils equal round and reactive to light, extra-ocular motions intact. Lids and lashes normal. Conjunctiva and sclera are non-icteric and not injected. Cornea within normal limits. Periorbital areas with no swelling, redness, or edema. Neck: Trachea midline, no thyromegaly or masses palpated, and no cervical lymphadenopathy. Supple, full range of motion without nuchal rigidity, or vertebral point tenderness. No Meningismus. Chest/axilla: Normal chest wall appearance and motion. Nontender with no deformity. No lesions are appreciated. Cardiovascular: Regular rate and rhythm with a normal S1 and S2. No gallops, murmurs, or rubs. Normal PMI, no JVD. No pulse deficits. Respiratory: Lungs have equal breath sounds bilaterally, clear to auscultation and percussion. No rales, rhonchi or wheezes noted. No increased work of breathing, no retractions or nasal flaring. Abdomen/GI: Soft, non-tender, with normal bowel sounds. No distension or tympany. No guarding or rebound. No evidence of tenderness throughout. Skin: Warm, dry with normal turgor. Normal color with no rashes, no lesions, and no evidence of cellulitis. Neuro: Awake and alert, GCS 15, oriented to person, place, time, and situation. Cranial nerves II-XII grossly intact. Motor strength 5/5 in all extremities. Sensory grossly intact. Cerebellar exam normal. Normal gait. Psych: Awake, alert, with orientation to person, place and time. Behavior, mood, and affect are within normal limits. 11:43 Musculoskeletal/extremity: Left hip no pain on axial load, full range of motion is present. Mild pain on straight leg raise at approximately 45 degrees. . Vital Signs: 11:28 Pulse 66; Resp 18; Temp 98.1; Pulse Ox 98% on R/A; Weight 81.65 kg; Height 5 ft. 9 in. mb9 ; Pain 6/10; 11:30 BP 185 / 88; mb9 12:15 BP 170 / 83; Pulse 58; Resp 18; Pulse Ox 100% on R/A; mb9 13:15 BP 160 / 92; Pulse 78; Resp 18; Pulse Ox 100% on R/A; mb9 11:28 Body Mass Index 26.58 (81.65 kg, 175.26 cm) mb9 11:28 Pain Scale: Adult mb9 MDM: 11:32 Patient medically screened. sp3 11:44 Data reviewed: vital signs, nurses notes, lab test result(s), radiologic studies. ED sp3 course: 77-year-old male with PMH above now with left hip pain into the low back pain. Will obtain CT scan of the LS spine, pelvis and hip x-rays and administer pain control. Laboratory values also pending. If work-up is negative for fracture or significant abnormality, we will safely discharge patient home with continued follow-up with his oncologist. I am not suspicious for cord compression at this time. We will hold on any steroids.. 12:36 ED course: CBC is pending. Chemistries demonstrate no significant abnormality. Moderate sp3 spondylolysis seen in the lumbar spine with moderate foraminal stenosis at the L4 level. This may represent patient's symptoms. Outpatient MRI is recommended. Once CBC is reviewed, we will safely discharge patient home.. 02/12 11:32 Order name: CBC with Diff sp3 02/12 11:32 Order name: CMP; Complete Time: 12:33 sp3 02/12 12:56 Order name: CBC Smear Scan EDMS 02/12 11:32 Order name: CT Lumbar Spine Wo Con; Complete Time: 12:33 sp3 02/12 11:32 Order name: Hip Left 2 View XRAY; Complete Time: 12:33 sp3 02/12 11:32 Order name: Pelvis XRAY; Complete Time: 12:33 sp3 02/12 11:32 Order name: IV Saline Lock; Complete Time: 11:38 sp3 02/12 11:32 Order name: Labs collected and sent; Complete Time: :38 sp3 Administered Medications: 13:15 Drug: HYDROmorphone IVP 1 mg IVP once Route: IVP; Site: right antecubital; mb9 13:47 Follow up: Response: No adverse reaction mb9 Disposition Summary: 02/12/23 12:49 Discharge Ordered Notes: Location: Home sp3 Condition: Stable sp3 Diagnosis - Left-sided lower extremity radiculopathy, spondylolysis of the lumbar spine, L4 sp3 foraminal narrowing Followup: sp3 - With: Private Physician - When: Upon discharge from the Emergency Department - Reason: Recheck today's complaints, Continuance of care Discharge Instructions: - Discharge Summary Sheet sp3 - Lumbosacral Radiculopathy sp3 Forms: - Medication Reconciliation Form sp3 - Thank You Letter sp3 - Antibiotic Education sp3 - Prescription Opioid Use sp3 - Patient Portal Instructions sp3 - Leadership Thank You Letter sp3 Prescriptions: - Diclofenac Sodium 75 mg Oral Tablet Sustained Release - take 1 tablet ORAL route 2 times per day; 30 tablet; Refills: 0, Product sp3 Selection Permitted Signatures: Dispatcher [employer] EDGokul Garcia MD MD sp3 Tammy Lala RN RN mb9
--- NOTE | 2023-02-12 12:49 | ER ---
Nurse's Notes [facility] Name: Elton Sanches Age: 77 yrs Sex: Male : 1945 Arrival Date: 02/12/2023 Time: 11:25 Bed 15 Private MD: Diagnosis: Left-sided lower extremity radiculopathy, spondylolysis of the lumbar spine, L4 foraminal narrowing Presentation: 02/12 11:28 Chief complaint: EMS states: "toned out for left hip pain that radiates to the lower mb9 back and is worse with movement. Gave 100 mcg of Fentanyl via 18 g right AC, and BGL 120.". Coronavirus screen: Vaccine status: Patient reports receiving the 2nd dose of the covid vaccine. Ebola Screen: No symptoms or risks identified at this time. Initial Sepsis Screen: Does the patient meet any 2 criteria? No. Patient's initial sepsis screen is negative. Does the patient have a suspected source of infection? No. Patient's initial sepsis screen is negative. Risk Assessment: Do you want to hurt yourself or someone else? Patient reports no desire to harm self or others. Onset of symptoms was February 12, 2023. 11:28 Method Of Arrival: EMS: [facility] mb9 11:28 Acuity: YARON 3 mb9 Triage Assessment: 11:31 General: Appears in no apparent distress. Behavior is calm, cooperative. Pain: mb9 Complains of pain in left hip Pain radiates to back and left leg Pain currently is 8 out of 10 on a pain scale. Quality of pain is described as throbbing. EENT: No signs and/or symptoms were reported regarding the EENT system. Neuro: Calderon Agitation-Sedation Scale (RASS): 0 - Alert and Calm Level of Consciousness is awake, alert, obeys commands, Oriented to person, place, time, situation, Appropriate for age. Cardiovascular: Patient's skin is warm and dry. Respiratory: Airway is patent Respiratory effort is even, unlabored, Respiratory pattern is regular, symmetrical, Breath sounds are clear bilaterally. GI: No signs and/or symptoms were reported involving the gastrointestinal system. : No signs and/or symptoms were reported regarding the genitourinary system. Derm: Skin is pink, warm \\T\\ dry. Musculoskeletal: Range of motion: limited in left hip. Historical: - Allergies: 11:29 PENICILLINS; mb9 - Home Meds: 11:29 aspirin 325 mg Oral TbEC 1 tab once daily [Active]; lisinopril 10 mg Oral tab 1 tab mb9 once daily [Active]; amiodarone 200 mg Oral tab 1 tab once daily [Active]; carvedilol 3.125 mg Oral tab 1 tab 2 times per day [Active]; - PMHx: 11:29 Atrial Fib; Hypertension; Kidney stones; multiple myeloma (Kidney stones); mb9 - Immunization history:: Adult Immunizations up to date. - Social history:: Smoking status: Patient denies any tobacco usage or history of. Screenin:32 [facility] ED Fall Risk Assessment (Adult) History of falling in the last 3 months, mb9 including since admission No falls in past 3 months (0 pts) Confusion or Disorientation No (0 pts) Intoxicated or Sedated No (0 pts) Impaired Gait No (0 pts) Mobility Assist Device Used No (0 pt) Altered Elimination No (0 pt) Score/Fall Risk Level 0 - 2 = Low Risk Oriented to surroundings, Maintained a safe environment, Educated pt \\T\\ family on fall prevention, incl call for assistance when getting out of bed. Abuse screen: Denies threats or abuse. Nutritional screening: No deficits noted. Tuberculosis screening: No symptoms or risk factors identified. Assessment: 11:32 Reassessment: see triage assessment. mb9 12:15 Reassessment: Patient and/or family updated on plan of care and expected duration. Pain mb9 level reassessed. Patient is alert, oriented x 3, equal unlabored respirations, skin warm/dry/pink. Patient states feeling better. Patient states symptoms have improved. 13:15 Reassessment: No changes from previously documented assessment. Patient and/or family mb9 updated on plan of care and expected duration. Pain level reassessed. Patient is alert, oriented x 3, equal unlabored respirations, skin warm/dry/pink. 13:15 Reassessment: Discharge pending ride home. mb9 13:47 Reassessment: Patient and/or family updated on plan of care and expected duration. Pain mb9 level reassessed. Patient is alert, oriented x 3, equal unlabored respirations, skin warm/dry/pink. Patient states feeling better. Patient states symptoms have improved. Vital Signs: 11:28 Pulse 66; Resp 18; Temp 98.1; Pulse Ox 98% on R/A; Weight 81.65 kg; Height 5 ft. 9 in. mb9 ; Pain 6/10; 11:30 BP 185 / 88; mb9 12:15 BP 170 / 83; Pulse 58; Resp 18; Pulse Ox 100% on R/A; mb9 13:15 BP 160 / 92; Pulse 78; Resp 18; Pulse Ox 100% on R/A; mb9 11:28 Body Mass Index 26.58 (81.65 kg, 175.26 cm) mb9 11:28 Pain Scale: Adult mb9 ED Course: 11:27 Patient arrived in ED. mb9 11:29 Triage completed. mb9 11:30 Gokul West MD is Attending Physician. sp3 11:31 Arm band placed on. mb9 11:32 Placed in gown. Bed in low position. Call light in reach. Side rails up X 1. Client mb9 placed on continuous cardiac and pulse oximetry monitoring. NIBP monitoring applied. 11:33 Tammy Lala RN is Primary Nurse. mb9 11:38 CBC with Diff Sent. mb9 11:38 CMP Sent. mb9 11:38 Maintain EMS IV. Dressing intact. Good blood return noted. Site clean \\T\\ dry. Gauge \\T\\ mb 9 site: 18 g right AC. 11:53 CT Lumbar Spine Wo Con In Process Unspecified. EDMS 12:10 Hip Left 2 View XRAY In Process Unspecified. EDMS 12:10 Pelvis XRAY In Process Unspecified. EDMS 13:45 IV discontinued, intact, bleeding controlled, No redness/swelling at site. Pressure mb9 dressing applied. Administered Medications: 13:15 Drug: HYDROmorphone IVP 1 mg IVP once Route: IVP; Site: right antecubital; mb9 13:47 Follow up: Response: No adverse reaction mb9 Medication: 11:32 VIS not applicable for this client. mb9 Outcome: 12:49 Discharge ordered by . sp3 13:45 Discharged to home ambulatory, with family, mb9 13:45 Condition: stable 13:45 Discharge instructions given to patient, family, Instructed on discharge instructions, follow up and referral plans. Demonstrated understanding of instructions, follow-up care, medications, Prescriptions given X 1, 13:48 Patient left the ED. mb9 Signatures: [facility]ul Orona MD MD sp3 Tammy Lala RN RN mb9
[2023-02-12 12:56] LABS: Anisocytosis 1+; Blood Morphology Comment NOTED (NOT SEEN); Macrocytosis 2+; Platelet Estimate ADEQ; White Blood Cell Scan OK (OK)
[2023-02-12] MEDS ORDERED: HYDROMORPHONE HCL 1 MG/ML INJ ONE (13:09)
[2023-02-12 14:04] VITALS: TEMP 98.1
[2023-02-12 14:07] VITALS: O2SAT 100
[2023-02-12 14:09] VITALS: BP 160/92
== END 2023-02-12 13:48 | disposition home or self-care (01) ==
LOC: ER 11:25
DX: M43.06 Spondylolysis, lumbar region (principal); M54.10 Radiculopathy, site unspecified; M99.63 Osseous and subluxation stenosis of intervertebral foramina of lumbar region; I10 Essential (primary) hypertension; Z88.0 Allergy status to penicillin
CPT/HCPCS: 85025; 36415; 80053; 72131; 72170; 73502; 96374; 99284; J1170